=== PATIENT | male | born 1990 | race Caucasian/White ===

== ENCOUNTER → 2020-03-30 | Outpatient (REF) | payer MEDICAID, SELFPAY ==
[2017-05-17 09:57] VITALS: BMI 43.0
[2020-03-30 14:32] LABS: Absolute Lymphocyte Count 3.38 X10^3/uL (0.83-4.51); Absolute Neutrophil Count 3.7 X10^3/uL (2.0-7.7); Basophil# 0.03 X10^3/uL; Basophil% 0.4 % (0-1); Eosinophil# 0.12 X10^3/uL; Eosinophils% 1.5 % (0-5); Hematocrit 47.7 % (40-54); Lymphocyte # 3.38 X10^3/ul (4.0); Lymphocyte % 43.3 % (19-41); Mean Corp Hgb Conc 33.5 g/dL (32-36); Mean Corpuscular Hgb 28.7 pg (27.0-32.0); Mean Corpuscular Volume 85.5 fL (80-94); Mean Platelet Vol. 13.1 fl (6.2-12.0); Monocyte# 0.54 X10^3/uL; Monocyte% 6.9 % (0-10); NRBC Flagged by Analyzer 0 % (0-5); Neutrophil # 3.72 X10^3/uL (2.7-7.7); Neutrophil % 47.6 % (47-70); POSITIVE COUNT YES; RBC Distribution Width CV 12.5 % (11.6-14.6); RBC Distribution Width SD 38.8 fl (35.1-43.9); Red Blood Count 5.58 M/mm3 (4.6-6.2); White Blood Count 7.8 K/mm3 (4.4-11.0)
[2020-03-30 14:56] LABS: Differential Indicated SCAN CRITERIA MET; Hemoglobin A1c 5.3 % (3.8-5.6)
[2020-03-30 14:57] LABS: Platelet Estimate ADEQUATE (ADEQ)
[2020-03-30 15:12] LABS: Valproic Acid (Depakene) Level 102 ug/mL (50-100)
[2020-03-30 15:19] LABS: ALB/GLOB Ratio 0.8 RATIO (0.9-2.4); AST(SGOT) 30 U/L (15-37); Alanine Aminotransfer ALT/SGPT 47 U/L (16-61); Albumin, Serum 3.8 g/dL (3.2-5.0); Alkaline Phosphatase 86 U/L (45-117); Anion Gap 7 (5-15); BUN 16 mg/dL (7-18); BUN/Creat Ratio 13.9 RATIO (10-20); Calcium,Total 9.7 mg/dL (8.5-10.1); Chloride 105 mmol/L (98-107); Cholesterol 206 mg/dL (200); Creatinine, Serum 1.15 mg/dL (0.70-1.30); EST Glomerular Filtration Rate 81 mL/min (>60); Est Glom Filt Rate - Afr Amer 98 mL/min (>60); Free T3 3.1 pg/mL (2.18-3.98); Globulin 4.7 g/dL (2.2-4.2); Glucose 64 mg/dL (74-106); High Density Lipoprotein 38 mg/dL; Potassium 4.5 mmol/L (3.5-5.1); Protein, Total 8.5 g/dL (6.4-8.2); Sodium Level 139 mmol/L (136-145); T4 Total, Thyroxin 8.9 ug/dL (4.5-12.1); Thyroid Stim Hormone (TSH) 4.25 uIU/mL (0.358-3.74); Triglycerides 154 mg/dL; Very Low Density Lipoprotein 31 mg/dL (5-40)
[2020-04-01 08:42] LABS: Vitamin D,25 Hydroxy 26.6 ng/mL
== END | disposition home or self-care (01) ==
LOC: LABSPEC 14:11
PROVIDERS: PCP Family Medicine; Visit Provider Nurse Practitioner Family
DX: E03.9 Hypothyroidism, unspecified (principal); E66.9 Obesity, unspecified; F31.9 Bipolar disorder, unspecified; Z51.81 Encounter for therapeutic drug level monitoring; Z79.899 Other long term (current) drug therapy
CPT/HCPCS: 80053; 80061; 80164; 82306; 83036; 84436; 84443; 84481; 85025

== ENCOUNTER → 2021-08-08 | Outpatient (CLI) | payer MEDICAID, SELFPAY ==
[2021-08-08 12:32] LABS: Absolute Lymphocyte Count 3.98 X10^3/uL (0.83-4.51); Absolute Neutrophil Count 3.7 X10^3/uL (2.0-7.7); Basophil# 0.05 X10^3/uL; Basophil% 0.6 % (0-1); Hematocrit 46.2 % (40-54); Hemoglobin 15.2 g/dL (13.0-16.5); Lymphocyte # 3.98 X10^3/ul (0.83-4.51); Lymphocyte % 47.2 % (19-41); Mean Corp Hgb Conc 32.9 g/dL (32-36); Mean Corpuscular Hgb 28.4 pg (27.0-32.0); Mean Corpuscular Volume 86.4 fL (80-94); Mean Platelet Vol. 11.8 fl (6.2-12.0); Monocyte# 0.65 X10^3/uL; Monocyte% 7.7 % (0-10); NRBC Flagged by Analyzer 0 % (0-5); Neutrophil # 3.72 X10^3/uL (2.7-7.7); Platelet Count 180 K/mm3 (150-450); RBC Distribution Width CV 12.9 % (11.6-14.6); RBC Distribution Width SD 40.3 fl (35.1-43.9); Red Blood Count 5.35 M/mm3 (4.6-6.2); White Blood Count 8.4 K/mm3 (4.4-11.0)
[2021-08-08 12:44] LABS: ALB/GLOB Ratio 0.8 RATIO (0.9-2.4); AST(SGOT) 41 U/L (15-37); Alanine Aminotransfer ALT/SGPT 71 U/L (16-61); Albumin, Serum 3.7 g/dL (3.2-5.0); Alkaline Phosphatase 80 U/L (45-117); Anion Gap 6 (5-15); BUN 22 mg/dL (7-18); BUN/Creat Ratio 19.3 RATIO (10-20); Calcium,Total 9.4 mg/dL (8.5-10.1); Chloride 104 mmol/L (98-107); Cholesterol 199 mg/dL (200); Creatinine, Serum 1.14 mg/dL (0.70-1.30); EST Glomerular Filtration Rate 81 mL/min (>60); Est Glom Filt Rate - Afr Amer 98 mL/min (>60); Free T3 3.1 pg/mL (2.18-3.98); Globulin 4.5 g/dL (2.2-4.2); Glucose 88 mg/dL (74-106); High Density Lipoprotein 38 mg/dL; Potassium 4.2 mmol/L (3.5-5.1); Protein, Total 8.2 g/dL (6.4-8.2); Sodium Level 138 mmol/L (136-145); T4 Free Direct 1.05 ng/dL (0.76-1.46); Thyroid Stim Hormone (TSH) 2.99 uIU/mL (0.358-3.74); Triglycerides 113 mg/dL; Very Low Density Lipoprotein 23 mg/dL (5-40)
[2021-08-08 13:51] LABS: Hemoglobin A1c 5.3 % (3.8-5.6)
[2021-08-09 09:15] LABS: Vitamin D,25 Hydroxy 95.2 ng/mL
== END | disposition home or self-care (01) ==
LOC: BIMLAB 09:50
PROVIDERS: PCP Nurse Practitioner Family; Referring Provider Internal Medicine; Visit Provider Internal Medicine
DX: F42.9 Obsessive-compulsive disorder, unspecified (principal); Z13.1 Encounter for screening for diabetes mellitus; Z13.220 Encounter for screening for lipoid disorders; E07.9 Disorder of thyroid, unspecified; E55.9 Vitamin D deficiency, unspecified
CPT/HCPCS: 36415; 80053; 80061; 82306; 83036; 84439; 84443; 84481; 85025

== ENCOUNTER → 2021-08-19 | Outpatient (CLI) | payer MEDICAID, SELFPAY ==
--- NOTE | 2021-08-19 09:44 | US_ITS ---
STUDY: ABDOMINAL ULTRASOUND - RIGHT UPPER QUADRANT REASON FOR VISIT: Male, 30 years old Elevated LFTs TECHNIQUE: Ultrasound evaluation of the right upper quadrant was performed with real-time and static jose-scale imaging. TECHNICAL QUALITY: Adequate. COMPARISON: None. FINDINGS: Liver: The liver is enlarged and measures 18.2 cm. There is increased echogenicity consistent with fatty infiltration. The bile ducts are within normal limits. There is hepatic color flow. The direction of portal flow is hepatopetal. There is no demonstrated mass lesion. Gallbladder: Normal distended gallbladder. The gallbladder wall measures 1.8 mm. There is a negative sonographic Amos''s sign. There is no pericholecystic fluid. There are no gallstones. Common Bile Duct (C.B.D.): The common bile duct measures 3. mm. Pancreas: There is nonvisualization of the pancreas due to overlying bowel gas. Right Kidney: Normal size of the right kidney. The right kidney measures 11.7 cm x 7 cm x 6.4 cm. Normal renal cortex. The right cortex measures 1.5 cm. There is no demonstrated renal mass or cyst. There is no right hydronephrosis. US/Liver IMPRESSION: Mild hepatomegaly and fatty infiltration of the liver. Electronically Signed: Robb Leonardo MD at 12:15 EDT ,
== END | disposition home or self-care (01) ==
LOC: US 09:42
PROVIDERS: PCP Internal Medicine; Visit Provider Internal Medicine
DX: R79.89 Other specified abnormal findings of blood chemistry (principal)
CPT/HCPCS: 76705

== ENCOUNTER → 2022-03-18 | Outpatient (CLI) | payer MEDICAID, SELFPAY ==
[2022-03-18 17:11] LABS: Absolute Lymphocyte Count 4.17 X10^3/uL (0.83-4.51); Absolute Neutrophil Count 5.9 X10^3/uL (2.0-7.7); Basophil# 0.04 X10^3/uL; Basophil% 0.4 % (0-1); Eosinophil# 0.01 X10^3/uL; Eosinophils% 0.1 % (0-5); Hematocrit 45.9 % (40-54); Hemoglobin 14.6 g/dL (13.0-16.5); Lymphocyte # 4.17 X10^3/ul (0.83-4.51); Lymphocyte % 37.9 % (19-41); Mean Corp Hgb Conc 31.8 g/dL (32-36); Mean Corpuscular Volume 88.1 fL (80-94); Mean Platelet Vol. 11.5 fl (6.2-12.0); Monocyte# 0.78 X10^3/uL; Monocyte% 7.1 % (0-10); NRBC Flagged by Analyzer 0 % (0-5); Neutrophil # 5.94 X10^3/uL (2.7-7.7); Platelet Count 213 K/mm3 (150-450); RBC Distribution Width CV 12.6 % (11.6-14.6); RBC Distribution Width SD 40.8 fl (35.1-43.9); Red Blood Count 5.21 M/mm3 (4.6-6.2)
[2022-03-18 17:33] LABS: ALB/GLOB Ratio 0.8 RATIO (0.9-2.4); AST(SGOT) 39 U/L (15-37); Alanine Aminotransfer ALT/SGPT 66 U/L (16-61); Albumin, Serum 3.4 g/dL (3.2-5.0); Alkaline Phosphatase 82 U/L (45-117); Anion Gap 5 (5-15); BUN 24 mg/dL (7-18); BUN/Creat Ratio 21.8 RATIO (10-20); Calcium,Total 9.3 mg/dL (8.5-10.1); Chloride 108 mmol/L (98-107); Cholesterol 191 mg/dL (200); EST Glomerular Filtration Rate 84 mL/min (>60); Est Glom Filt Rate - Afr Amer 101 mL/min (>60); Globulin 4.5 g/dL (2.2-4.2); Glucose 106 mg/dL (74-106); High Density Lipoprotein 37 mg/dL; Potassium 4.2 mmol/L (3.5-5.1); Protein, Total 7.9 g/dL (6.4-8.2); Sodium Level 142 mmol/L (136-145); Thyroid Stim Hormone (TSH) 2.98 uIU/mL (0.358-3.74); Triglycerides 216 mg/dL; Very Low Density Lipoprotein 43 mg/dL (5-40)
== END | disposition home or self-care (01) ==
LOC: BIMLAB 15:38
PROVIDERS: PCP Internal Medicine; Referring Provider Internal Medicine; Visit Provider Internal Medicine
DX: I10 Essential (primary) hypertension (principal); E78.5 Hyperlipidemia, unspecified; E03.9 Hypothyroidism, unspecified
CPT/HCPCS: 36415; 80053; 80061; 84443; 85025

== ENCOUNTER 2022-04-01 08:50 | Outpatient (RCR) | payer MEDICAID, SELFPAY | END 2022-04-14 23:59 | LOC: NS 08:50 | PROVIDERS: PCP Internal Medicine; Visit Provider Internal Medicine | DX: E66.9 Obesity, unspecified (principal); I10 Essential (primary) hypertension; E78.5 Hyperlipidemia, unspecified; Z68.41 Body mass index [BMI] 40.0-44.9, adult; Z71.3 Dietary counseling and surveillance | CPT/HCPCS: 97802 ==

== ENCOUNTER 2022-04-15 14:34 | Outpatient (RCR) | payer MEDICAID, SELFPAY | END 2022-05-12 23:59 | LOC: NS 14:34 | PROVIDERS: PCP Internal Medicine; Referring Provider Internal Medicine; Visit Provider Internal Medicine | DX: Z71.3 Dietary counseling and surveillance (principal); E66.9 Obesity, unspecified; I10 Essential (primary) hypertension; E78.5 Hyperlipidemia, unspecified; Z68.41 Body mass index [BMI] 40.0-44.9, adult | CPT/HCPCS: 97803 ==

== ENCOUNTER 2022-06-01 09:13 | Day surgery (SDC) | payer MEDICAID, SELFPAY ==
[2022-06-01] VITALS (8 sets, daily range): BP systolic 108–146; BP diastolic 53–64; PULSE 62–70; RESP 16; TEMP 36.5–37.1; O2SAT 94–100; BMI 40.7
--- NOTE | 2022-06-01 09:35 | HP.PCM_ITS ---
History and Physical Date of Admission: 06/01/22 Intake Vital Signs ? 05/29/2312:20 Weight: 323 lb BP 138/81 H Blood Pressure Location Rt brachial Position Sitting Pulse 73 Pulse Source Monitor Temp 97.4 F L Temp Source Temporal Pulse Oximetry (%) 97 Oxygen Delivery Method room air Intake Visit Reasons:?INFECTED ACSCESS ON CHEST WALL Chief Complaint: infected abcess on chest wall Is patient in pain?: No Allergies No Known Allergies Allergy (Verified 05/29/22 13:21) Medications trazodone 50 mg tablet 50 mg PO QHS PRN 05/13/17 [History Confirmed 05/29/22] aripiprazole 30 mg tablet 30 mg PO DAILY 05/29/20 [History Confirmed 05/29/22] benztropine 2 mg tablet 2 mg PO DAILY 05/29/20 [History Confirmed 05/29/22] divalproex 500 mg tablet,extended release 24 hr (Depakote ER) 2,000 mg PO QHS 05/29/20 [History Confirmed 05/29/22] fluvoxamine 150 mg capsule,extended release 24 hr 150 mg PO QDAY 05/29/20 [History Confirmed 05/29/22] cholecalciferol (vitamin D3) 1,250 mcg (50,000 unit) capsule 1,250 mcg PO QWEEK #12 caps 02/10/22 [Rx Confirmed 05/29/22] cephalexin 500 mg capsule 500 mg PO Q6H 05/27/22 [History Confirmed 05/29/22] levothyroxine 75 mcg tablet 75 mcg PO DAILY #90 tabs 05/27/22 [Rx Confirmed 05/29/22] omeprazole 20 mg capsule,delayed release 20 mg PO BID #180 caps 05/27/22 [Rx Confirmed 05/29/22] sulfamethoxazole 800 mg-trimethoprim 160 mg tablet (Bactrim DS) 1 tab PO BID 05/27/22 [History Confirmed 05/29/22] PFSH Medical History? Anxiety and depression Autism Back pain Chest wall abscess Flu vaccine need GERD (gastroesophageal reflux disease) Hyperlipidemia Hypertension Obesity (BMI 30-39.9) OCD (obsessive compulsive disorder) Sleep apnea Thyroid disease Surgical History? History of removal of cyst History of wisdom tooth extraction Family History? Grandmother DiabetesFather HypertensionMother HypertensionOther Alcohol abuse Mental health problem Social History? Smoking Status:? Former smoker alcohol intake:? never what type of physical activity do you participate in:? other details: [employer] HPI HPI HPI: The patient is a 31-year-old male here with infected sebaceous cyst of the chest.? Patient had sebaceous cyst removed in this area about a year ago.? He reports that the cyst came back it became infected and he was started on antibiotics about a week ago and his PCP drained it about 4 days ago.? He does report there is some purulent discharge still.? He denies fevers or chills. ROS General General: No weight change, appetite, fatigue, colon cancer, breast cancer or weakness HEENT HEENT: No difficulty swallowing, eye injury, eye surgery, swollen glands or hoarseness Endo Endocrine: Yes thyroid disease; No diabetes mellitus, thyroid cancer, Hair loss, heat intolerance or cold intolerance Skin Skin: No rash or changing moles Breast Breast: No left breast lump, right breast lump, nipple discharge, breast pain, abnormal mammogram, abnormal US or breast enlargement Musc Musculoskeletal: No back problems, arthritis, rheumatoid arthritis, gout or joint pain Cardio Cardiovascular: No murmur, pacemaker, heart disease, atrial fibrillation, high blood pressure, heart attack, heart stent, palpitations, shortness of breat with exertion or chest pain Psych Psychiatric: Yes depression and anxiety; No hearing voices Resp Respiratory: No shortness of breath, Yes sleep apnea, No cough, No COPD, No asthma, No emphysema and No wheezing Gastro Gastrointestinal: No abdominal pain, No nausea or vomiting, No diarrhea, No constipation, No blood in stool, Yes acid reflux, No hemorrhoids, No ulcers, No gallbladder problem and No black,tarry stools Frank Hematologic: No blood thinners, No blood disorders, No bleeding, No anemia and No blood clots Neuro Neurologic: No system reviewed and no additional complaints, except as documented, No as per HPI, No abnormal gait, No abnormal hearing, No abnormal movements, No abnormal speech, No behavioral changes, No burning sensations, No confusion, No convulsions, No disequilibrium, No dizziness, No localized weakness, No frequent falls, No headache(s), No lack of coordination, No loss of vision, No memory loss, No numbness, No other visual disturbances, No radicular pain, No restless legs, No sensory deficit, No syncope, No tingling, No tremor(s), No weakness and No other Exam Const General: cooperative Orientation: alert and oriented x3 HENRI Head: normal to inspection Neck Neck: normal visual inspection and full ROM Chest Chest palpation & inspection: normal inspection of the chest Other: Patient has an infected cyst with a cruciate incision that is draining purulent fluid with minimal erythema in the middle of his chest Resp Effort & Inspection: normal respiratory effort Auscultation: clear to auscultation bilaterally Cardio Rate: regular rate Rhythm: regular rhythm GI Inspection: non-distended Palpation: soft and nontender Skin General: no rashes or lesions noted Neuro General: patient alert and patient oriented x3 Extrem General: full ROM Psych Appearance: grossly normal Mental Status: mental status grossly normal Assessment and Plan Assessment and Plan (1) Chest wall abscess: ?Status:?Acute ?Plan: Patient has an infected sebaceous cyst in the center of his chest.? The patient is autistic and the patient and his family are requesting anesthesia.? I will take the patient on Wednesday to surgery to perform excision of this infected sebaceous cyst in the operating room under MAC anesthesia.? I discussed the risks of bleeding and infection and the patient is in agreement.? He will continue his antibiotics for the weekend. Nabil Issa MD Pager: [facility] [address] [place] [address], [address] [place] [address] Office: I have examined the patient and the H&P has been reviewed. There are no clinical changes since date of exam.
[2022-06-01] MEDS: Lactated Ringers 1,000 ML 15 ML IV (10:03)
[2022-06-01] MEDS: Cefotetan 2 GM in 0.9% NS 100 ML IV (11:03)
[2022-06-01] MEDS: Lidocaine 1%/Epi 1:200 (30ml) 30 ML AMPUL (11:09)
--- NOTE | 2022-06-01 11:20 | CYST_PTH ---
PATIENT: KASE[place] PENA [place] [facility] [id number] AGE/SX: 31/M ROOM: RE06/01/[address]: Dr. Nabil Issa MD : 1990 BED: DIS: 06/01/2022 SPEC #: [id number] RECD: 06/01/22 12:12 STATUS: MARC MIKIE #: [id number] TRISTAN: 06/01/22 11:[address]: Nabil Issa DEPT: SURGICAL PATHOLOGY RECD BY: Alivia Andino ENTERED: 06/01/22 12:44 SP TYPE: Cyst OTHR DR: Dr. Maricarmen Almazan MD Tissues: CYST Procedures: Surgery Specimen Level III HEADER OPERATION: Excision sebaceous cyst infected, chest PRE-OP DIAGNOSIS: Chest wall abscess TISSUE SUBMITTED: Chest wall sebaceous cyst MICROSCOPIC DIAGNOSIS Chest wall sebaceous cyst, excision: Consistent with ruptured epidermal inclusion cyst with acute and chronic inflammation and fat necrosis. SJ:oksana 06/02/2022 MICROSCOPIC DESCRIPTION Slides are reviewed. GROSS DESCRIPTION Received in fixative is one container labeled with the patient's name and designated chest wall sebaceous cyst. The specimen consists of four irregular fragments of skin with attached yellow soft tissue ranging in size from 1.5 to 2.0 cm. The specimen is totally submitted in one cassette. / AM:oksana 06/01/2022 TC:5 CPT: 89783
--- NOTE | 2022-06-01 12:28 | PCM.OPRPT ---
Report of Operation Date of Procedure: 06/01/22 Pre-Operative Diagnosis: Infected sebaceous cyst of the chest Post-Operative Diagnosis: Same Surgery/Procedure Performed:: Excision of infected sebaceous cyst Specimen's removed: Sebaceous cyst of the chest Description of Procedure: Patient brought back to the operating room and MAC anesthesia was used. The chest was prepped and draped in usual sterile fashion. An incision was marked around the prior I&D site and it was injected with local anesthetic. Incision was made with a scalpel down to the subcutaneous tissue. The cyst wall and its contents were removed and dissection was carried back to clean unaffected fat. The cavity was irrigated and suctioned dry and hemostasis was obtained using electrocautery. The incision was then closed with interrupted 3-0 Vicryl sutures and a running 3-0 Vicryl suture. Steri-Strips and bandage were applied. Patient tolerated the procedure well. Admit VTE Documentation VTE Mechan Device Prophylaxis: SCD's
--- NOTE | 2022-06-01 12:32 | DCINST_ITS ---
Discharge Instructions Diet Discharge Diet: No restrictions Activity Discharge Activity: Return to Normal Activity and May Shower (tomorrow over the bandages) Lifting Restrictions: none Dressing / Incision Call your doctor if your incision/area has: Continuous Slow Oozing, Sudden Increased Bleeding, Increased Pain/ Swelling, Increased Redness, Foul Smelling Discharge and Swelling at the incision site Call your doctor if you observe: Fever of 101 or Higher Change Dressing in: 2 days (Remove clear bandage in 2 days. Remove Steri-Strips in 7 to 10 days.) Cleanse incision/area with: Soap & Water Follow Up Care Please Follow Up With: Nabil Issa MD When: Please call to schedule 2 week follow up appointment. [phone] Test Results: Test results from this visit will be discussed in further detail at your follow- up appointment, if applicable. Discharge Plan Admission Attending Provider: Nabil Issa Primary Care Provider: Maricarmen Almazan Instructions Additional Instructions / Restrictions: Ibuprofen and Tylenol for pain Discharge Orders/Prescriptions Prescriptions: No Action trazodone 50 mg tablet 50 mg PO QHS PRN (Reason: Sleep) divalproex [Depakote ER] 500 mg tablet extended release 24 hr 2,000 mg PO QHS aripiprazole 30 mg tablet 30 mg PO DAILY Label Comments: take 1 tablet by mouth once daily as directed fluvoxamine 150 mg capsule,extended release 24hr 150 mg PO QDAY Label Comments: take 1 capsule by mouth once daily as directed benztropine 2 mg tablet 2 mg PO DAILY Label Comments: take 1 tablet by mouth once daily as directed cephalexin 500 mg capsule 500 mg PO Q6H sulfamethoxazole-trimethoprim [Bactrim DS] 800-160 mg tablet 1 tab PO BID levothyroxine 75 mcg tablet 75 mcg PO DAILY Qty: 90 1RF omeprazole 20 mg capsule,delayed release(DR/EC) 20 mg PO BID Qty: 180 3RF cholecalciferol (vitamin D3) 1,250 mcg (50,000 unit) capsule 1,250 mcg PO QWEEK Qty: 12 1RF Referrals / Follow Up: Maricarmen Almazan MD [Primary Care Provider] - Disposition Disposition (needs filled in before D/C Order can be placed): Home, Self Care
[2022-06-01] MEDS: Acetaminophen 500 MG Tablet 1000 MG PO (12:46)
== END 2022-06-01 12:56 | disposition home or self-care (01) ==
LOC: SDC 09:15 → AC 09:17
PROVIDERS: PCP Internal Medicine; Visit Provider Surgery
PROC: (CPT 11402; principal; 2022-06-01 11:10)
DX: L72.3 Sebaceous cyst (principal); Z87.891 Personal history of nicotine dependence; F84.0 Autistic disorder; E78.5 Hyperlipidemia, unspecified; E03.9 Hypothyroidism, unspecified; I10 Essential (primary) hypertension; L08.9 Local infection of the skin and subcutaneous tissue, unspecified
CPT/HCPCS: 11402; 88304; J7120; J2405

== ENCOUNTER → 2022-09-17 | Outpatient (CLI) | payer MEDICAID, SELFPAY ==
[2022-09-17 16:41] LABS: Absolute Lymphocyte Count 4.02 X10^3/uL (0.83-4.51); Absolute Neutrophil Count 5.8 X10^3/uL (2.0-7.7); Basophil# 0.06 X10^3/uL; Basophil% 0.6 % (0-1); Hematocrit 47.4 % (40-54); Hemoglobin 15.1 g/dL (13.0-16.5); Lymphocyte # 4.02 X10^3/ul (0.83-4.51); Lymphocyte % 37.4 % (19-41); Mean Corp Hgb Conc 31.9 g/dL (32-36); Mean Corpuscular Volume 87.8 fL (80-94); Mean Platelet Vol. 11.4 fl (6.2-12.0); Monocyte# 0.82 X10^3/uL; Monocyte% 7.6 % (0-10); NRBC Flagged by Analyzer 0 % (0-5); Neutrophil % 53.8 % (47-70); Platelet Count 216 K/mm3 (150-450); RBC Distribution Width CV 13.1 % (11.6-14.6); RBC Distribution Width SD 41.9 fl (35.1-43.9); White Blood Count 10.8 K/mm3 (4.4-11.0)
[2022-09-17 17:01] LABS: Hemoglobin A1c 5.2 % (3.8-5.6)
[2022-09-17 17:12] LABS: ALB/GLOB Ratio 0.7 RATIO (0.9-2.4); AST(SGOT) 24 U/L (15-37); Alanine Aminotransfer ALT/SGPT 39 U/L (16-61); Albumin, Serum 3.5 g/dL (3.2-5.0); Alkaline Phosphatase 85 U/L (45-117); Anion Gap 6 (5-15); BUN 17 mg/dL (7-18); BUN/Creat Ratio 15.5 RATIO (10-20); Calcium,Total 9.5 mg/dL (8.5-10.1); Chloride 106 mmol/L (98-107); Cholesterol 187 mg/dL (200); EST Glomerular Filtration Rate 84 mL/min (>60); Est Glom Filt Rate - Afr Amer 101 mL/min (>60); Globulin 4.7 g/dL (2.2-4.2); Glucose 86 mg/dL (74-106); High Density Lipoprotein 44 mg/dL; Potassium 4.5 mmol/L (3.5-5.1); Protein, Total 8.2 g/dL (6.4-8.2); Sodium Level 141 mmol/L (136-145); Thyroid Stim Hormone (TSH) 3.85 uIU/mL (0.358-3.74); Triglycerides 224 mg/dL; Very Low Density Lipoprotein 45 mg/dL (5-40)
[2022-09-17 17:17] LABS: Valproic Acid (Depakene) Level 71 ug/mL (50-100)
[2022-09-17 17:19] LABS: Vitamin D,25 Hydroxy 83.3 ng/mL
== END | disposition home or self-care (01) ==
LOC: BIMLAB 15:31
PROVIDERS: PCP Internal Medicine; Referring Provider Internal Medicine; Visit Provider Internal Medicine
DX: E03.9 Hypothyroidism, unspecified (principal); E66.9 Obesity, unspecified; E78.5 Hyperlipidemia, unspecified; Z13.21 Encounter for screening for nutritional disorder; Z51.81 Encounter for therapeutic drug level monitoring
CPT/HCPCS: 36415; 80053; 80061; 80164; 82306; 83036; 84443; 85025

== ENCOUNTER → 2023-06-15 | Outpatient (CLI) | payer MEDICAID, SELFPAY ==
[2023-06-15 10:52] LABS: Absolute Lymphocyte Count 3.41 X10^3/uL (0.83-4.51); Basophil# 0.03 X10^3/uL; Basophil% 0.4 % (0-1); Hematocrit 46.2 % (40-54); Hemoglobin 14.9 g/dL (13.0-16.5); Lymphocyte # 3.41 X10^3/ul (0.83-4.51); Lymphocyte % 42.5 % (19-41); Mean Corp Hgb Conc 32.3 g/dL (32-36); Mean Corpuscular Volume 86.8 fL (80-94); Mean Platelet Vol. 10.9 fl (6.2-12.0); Monocyte# 0.57 X10^3/uL; Monocyte% 7.1 % (0-10); NRBC Flagged by Analyzer 0 % (0-5); Neutrophil # 3.98 X10^3/uL (2.7-7.7); Neutrophil % 49.6 % (47-70); Platelet Count 182 K/mm3 (150-450); RBC Distribution Width CV 13.7 % (11.6-14.6); RBC Distribution Width SD 42.6 fl (35.1-43.9); Red Blood Count 5.32 M/mm3 (4.6-6.2)
[2023-06-15 11:37] LABS: Anion Gap 6 (5-15); BUN 14 mg/dL (7-18); BUN/Creat Ratio 13.3 RATIO (10-20); Calcium,Total 9.6 mg/dL (8.5-10.1); Chloride 105 mmol/L (98-107); Cholesterol 220 mg/dL (200); Creatinine, Serum 1.05 mg/dL (0.70-1.30); EST Glomerular Filtration Rate 88 mL/min (>60); Est Glom Filt Rate - Afr Amer 106 mL/min (>60); Free T3 2.8 pg/mL (2.18-3.98); Glucose 96 mg/dL (74-106); High Density Lipoprotein 38 mg/dL; Potassium 4.6 mmol/L (3.5-5.1); Sodium Level 140 mmol/L (136-145); T4 Free Direct 0.86 ng/dL (0.76-1.46); Thyroid Stim Hormone (TSH) 2.81 uIU/mL (0.358-3.74); Triglycerides 207 mg/dL; Very Low Density Lipoprotein 41 mg/dL (5-40)
[2023-06-15 11:38] LABS: Valproic Acid (Depakene) Level 83 ug/mL (50-100)
[2023-06-15 11:48] LABS: Vitamin D,25 Hydroxy 78.2 ng/mL
[2023-06-15 12:17] LABS: Hemoglobin A1c 5.6 % (3.8-5.6)
== END | disposition home or self-care (01) ==
LOC: BIMLAB 08:02
PROVIDERS: PCP Internal Medicine
DX: F84.0 Autistic disorder (principal)
CPT/HCPCS: 36415; 80048; 80061; 80164; 82306; 83036; 84439; 84443; 84481; 85025

== ENCOUNTER → 2023-12-24 | Outpatient (CLI) | payer MEDICAID, SELFPAY ==
[2023-12-24 15:47] LABS: Anion Gap 4 (5-15); BUN 17 mg/dL (7-18); BUN/Creat Ratio 15.5 RATIO (10-20); Calcium,Total 10.1 mg/dL (8.5-10.1); Chloride 105 mmol/L (98-107); EST Glomerular Filtration Rate 83 mL/min (>60); Est Glom Filt Rate - Afr Amer 100 mL/min (>60); Glucose 82 mg/dL (74-106); Sodium Level 142 mmol/L (136-145)
== END | disposition home or self-care (01) ==
LOC: BIMLAB 11:43
PROVIDERS: PCP Internal Medicine; Referring Provider Nurse Practitioner; Visit Provider Nurse Practitioner
DX: R03.0 Elevated blood-pressure reading, without diagnosis of hypertension (principal)
CPT/HCPCS: 36415; 80048

== ENCOUNTER → 2024-06-05 | Outpatient (CLI) | payer MEDICAID, SELFPAY ==
--- NOTE | 2024-06-05 08:36 | BI_ITS ---
EXAM: DIAG MAMM W/CAD, BILAT N/A CLINICAL HISTORY: M, Age 33 y/o , BREAST LUMP. Palpable abnormality left breast. Evaluate. TECHNIQUE: Bilateral Diagnostic digital breast tomosynthesis with 2D and 3D images. Computer aided detection. COMPARISON: None. FINDINGS: TISSUE DENSITY: The breast tissue is almost entirely fatty. Bilateral Breast Mammographic Findings: A radiopaque marker is placed over the right breast palpable abnormality which is located in the inferior medial, far posterior aspect. There is an ill-defined 6 mm masslike density in this location. Further workup with ultrasound will be performed. There is an 8 mm, lobulated, partially obscured, isodense mass in the superior outer aspect of the right breast approximately 5 cm from the nipple. Further workup with ultrasound will be performed. There is an 8 mm partially obscured isodense mass in the superior outer aspect of the left breast. This mass has a fatty hilum and is most compatible with an intramammary lymph node. No suspicious masses, suspicious clustered microcalcifications, architectural distortion or secondary sign of malignancy is identified in the left breast. BI/DIAG MAMM W/CAD, BILAT IMPRESSION: Right Breast: BIRADS 0 Incomplete: Need additional imaging evaluation and/or pr ior mammograms for comparison.. Left Breast: BIRADS 2 BENIGN FINDING. OVERALL FINAL ASSESSMENT: BIRADS 0 Incomplete: Need additional imaging evaluati on and/or prior mammograms for comparison.. RECOMMENDATION: Recommendation: Ultrasound. A letter with findings and recommendations will be mailed to the patient. Reading Location: [id number]
--- NOTE | 2024-06-05 08:36 | US_ITS ---
EXAM: BREAST LIMITED UNILATERAL 06/05/2024. Right breast ultrasound. CLINICAL HISTORY: M, Age 33 y/o, right breast palpable abnormality. BREAST LUMP. Inconclusive mammogram. Right breast masses. Evaluate. TECHNIQUE: Right breast ultrasound examination. COMPARISON: Mammogram dated 06/05/2024 FINDINGS: There are benign-appearing intramammary lymph nodes clustered in the right breast at the 9 o'clock, 4 cm from the nipple position measuring 3 x 3 x 2 mm, 7 x 6 x 3 mm and 6 x 4 x 3 mm. This correlates to the lobulated mass seen on the mammogram. The palpable abnormality is located at the 5 o'clock, 9 cm from the nipple position. There is a complex cystic structure at this location measuring 6 x 4 x 2 mm which does extend to the dermis. This is most compatible with a sebaceous cyst. The skin is not red according to the technologist. The skin does not demonstrate increased warmth at this location according to the technologist. This mass does correlate to the mass seen on the mammogram. US/Breast Limited Unilateral IMPRESSION: Right Breast: BIRADS 2 BENIGN FINDING. OVERALL FINAL ASSESSMENT: BIRADS 2 BENIGN FINDING. RECOMMENDATION: Recommendation: No recommendation required. No follow-up at this time is nece ssary. A letter with findings and recommendations will be mailed to the patient. Reading Location: [id number]
== END | disposition home or self-care (01) ==
LOC: OPUS 08:34
PROVIDERS: PCP Internal Medicine; Referring Provider Physician Assistant; Visit Provider Physician Assistant
DX: N63.14 Unspecified lump in the right breast, lower inner quadrant (principal)
CPT/HCPCS: 77062; 76642; 77066; G0279

== ENCOUNTER → 2024-06-28 | Outpatient (CLI) | payer MEDICAID, SELFPAY ==
[2024-06-28 12:57] LABS: Absolute Lymphocyte Count 4.46 X10^3/uL (0.83-4.51); Absolute Neutrophil Count 4.4 X10^3/uL (2.0-7.7); Basophil# 0.07 X10^3/uL; Basophil% 0.7 % (0-1); Eosinophil# 0.02 X10^3/uL; Eosinophils% 0.2 % (0-5); Hematocrit 45.6 % (40-54); Lymphocyte # 4.46 X10^3/ul (0.83-4.51); Lymphocyte % 45.9 % (19-41); Mean Corp Hgb Conc 32.9 g/dL (32-36); Mean Corpuscular Hgb 28.4 pg (27.0-32.0); Mean Corpuscular Volume 86.2 fL (80-94); Mean Platelet Vol. 11.2 fl (6.2-12.0); Monocyte% 7.2 % (0-10); NRBC Flagged by Analyzer 0 % (0-5); Neutrophil % 45.4 % (47-70); Platelet Count 198 K/mm3 (150-450); RBC Distribution Width CV 13.4 % (11.6-14.6); RBC Distribution Width SD 41.7 fl (35.1-43.9); Red Blood Count 5.29 M/mm3 (4.6-6.2); White Blood Count 9.7 K/mm3 (4.4-11.0)
[2024-06-28 13:21] LABS: Valproic Acid (Depakene) Level 88 ug/mL (50-100)
[2024-06-28 13:30] LABS: Hemoglobin A1c 5.9 % (<=5.6)
[2024-06-28 13:54] LABS: ALB/GLOB Ratio 1.2 RATIO (0.9-2.4); AST(SGOT) 32 U/L (<=37); Alanine Aminotransfer ALT/SGPT 41 U/L (<=46); Albumin, Serum 4.2 g/dL (3.5-5.0); Alkaline Phosphatase 76 U/L (40-129); Anion Gap 13 (5-15); BUN 17 mg/dL (4-19); BUN/Creat Ratio 15.1 RATIO (10-20); Calcium,Total 10.1 mg/dL (7.6-11.0); Carbon Dioxide 26.2 mmol/L (21.0-32.0); Chloride 102 mmol/L (98-108); Cholesterol 220 mg/dL (<=200); Creatinine, Serum 1.11 mg/dL (0.70-1.20); EST Glomerular Filtration Rate 91 (>60); Globulin 3.6 g/dL (2.2-4.2); Glucose 95 mg/dL (70-99); High Density Lipoprotein 38 mg/dL; Low Density Lipoprotein Calc. 145 mg/dL; Potassium 4.7 mmol/L (3.3-5.1); Protein, Total 7.7 g/dL (5.9-8.4); Sodium Level 141 mmol/L (133-145); Total Bilirubin 0.29 mg/dL (0.00-1.30); Triglycerides 184 mg/dL; Very Low Density Lipoprotein 37 mg/dL (5-40); cholesterol:hdl ratio screen 5.74
[2024-06-28 13:55] LABS: Free T3 3.1 pg/mL (2.18-3.98); Vitamin D,25 Hydroxy 71.8 ng/mL (30-100)
== END | disposition home or self-care (01) ==
LOC: BIMLAB 09:02
PROVIDERS: PCP Internal Medicine
DX: F84.0 Autistic disorder (principal); F42.9 Obsessive-compulsive disorder, unspecified
CPT/HCPCS: 36415; 80053; 80061; 80164; 82306; 83036; 84439; 84443; 84481; 85025

== ENCOUNTER → 2024-10-26 | Outpatient (CLI) | payer MEDICARE, SELFPAY ==
[2024-10-26 18:06] LABS: Hematocrit 45.7 % (40-54); Hemoglobin 14.9 g/dL (13.0-16.5); Immature Granulocytes Count 0.070 X10^3/uL (0.0-0.0); Mean Corp Hgb Conc 32.6 g/dL (32-36); Mean Corpuscular Volume 86.2 fL (80-94); Mean Platelet Vol. 12.0 fl (6.2-12.0); NRBC Flagged by Analyzer 0 % (0-5); Platelet Count 215 K/mm3 (150-450); RBC Distribution Width CV 13.4 % (11.6-14.6); RBC Distribution Width SD 41.7 fl (35.1-43.9); Red Blood Count 5.30 M/mm3 (4.6-6.2); White Blood Count 10.5 K/mm3 (4.4-11.0)
[2024-10-26 18:33] LABS: AST(SGOT) 40 U/L (<=37); Alanine Aminotransfer ALT/SGPT 68 U/L (<=46); Albumin, Serum 4.3 g/dL (3.5-5.0); Alkaline Phosphatase 80 U/L (40-129); Anion Gap 14 (5-15); BUN 15 mg/dL (4-19); BUN/Creat Ratio 14.1 RATIO (10-20); Calcium,Total 10.2 mg/dL (7.6-11.0); Carbon Dioxide 25.1 mmol/L (21.0-32.0); Chloride 103 mmol/L (98-108); Globulin 3.7 g/dL (2.2-4.2); Glucose 78 mg/dL (70-99); Potassium 4.5 mmol/L (3.3-5.1)
== END | disposition home or self-care (01) ==
PROVIDERS: PCP Internal Medicine; Referring Provider Internal Medicine; Visit Provider Internal Medicine
DX: E03.9 Hypothyroidism, unspecified (principal); R73.03 Prediabetes
CPT/HCPCS: 36415; 80053; 83036; 84443; 85025

== ENCOUNTER → 2025-01-16 | Outpatient (CLI) | payer MEDICARE, MEDICAID, SELFPAY ==
[2025-01-16 12:23] LABS: Hematocrit 46.7 % (40-54); Hemoglobin 15.3 g/dL (13.0-16.5); Immature Granulocytes Count 0.050 X10^3/uL (0.0-0.0); Mean Corp Hgb Conc 32.8 g/dL (32-36); Mean Corpuscular Volume 86.3 fL (80-94); Mean Platelet Vol. 11.6 fl (6.2-12.0); NRBC Flagged by Analyzer 0 % (0-5); Platelet Count 212 K/mm3 (150-450); RBC Distribution Width CV 13.2 % (11.6-14.6); RBC Distribution Width SD 41.1 fl (35.1-43.9); Red Blood Count 5.41 M/mm3 (4.6-6.2); White Blood Count 9.2 K/mm3 (4.4-11.0)
[2025-01-16 13:14] LABS: AST(SGOT) 32 U/L (<=37); Alanine Aminotransfer ALT/SGPT 42 U/L (<=46); Albumin, Serum 4.3 g/dL (3.5-5.0); Alkaline Phosphatase 78 U/L (40-129); Anion Gap 9 (5-15); BUN 20 mg/dL (4-19); BUN/Creat Ratio 21.2 RATIO (10-20); Calcium,Total 10.2 mg/dL (7.6-11.0); Carbon Dioxide 28.9 mmol/L (21.0-32.0); Chloride 102 mmol/L (98-108); Cholesterol 193 mg/dL (<=200); Ferritin 92 ng/mL (37-417); Globulin 3.6 g/dL (2.2-4.2); Glucose 96 mg/dL (70-99); Low Density Lipoprotein Calc. 132 mg/dL; Potassium 4.9 mmol/L (3.3-5.1); Triglycerides 120 mg/dL; Very Low Density Lipoprotein 24 mg/dL (5-40); Vitamin B12 1074 pg/mL (180-914); Vitamin D,25 Hydroxy 86.6 ng/mL (30-100); cholesterol:hdl ratio screen 4.95
== END | disposition home or self-care (01) ==
LOC: VSLAB 10:15
PROVIDERS: PCP Internal Medicine; Referring Provider Family Medicine; Visit Provider Family Medicine
DX: E03.9 Hypothyroidism, unspecified (principal); R73.01 Impaired fasting glucose; K21.9 Gastro-esophageal reflux disease without esophagitis; E55.9 Vitamin D deficiency, unspecified
CPT/HCPCS: 36415; 80053; 80061; 82306; 82607; 82728; 83036; 84439; 84443; 85025